=== PATIENT | female | born 1975 | race Caucasian/White ===

== ENCOUNTER 2018-07-01 11:03 | Emergency (ER) | payer OTHER ==
[~2018-07-01] VITALS: Ht 162.6 cm; Wt 99.8 kg
[~2018-07-01 11:03] MED LIST: ALBU90OI INH; Bactrim Ds Tab1 EACH PO; Cleocin HCl300 MG PO; GENVOYA TABLET1 EACH; HYDACE10B PO; HYDCHL25 PO; LOSA50 PO; PROCODE120 PO; SPACE CHAMBER1 EACH MC; [UNRECOGNIZED DRUG - OTHER]
[2018-07-01] MEDS ORDERED: Xylocaine 2% In20 ML PO (11:28)
== END 2018-07-01 11:31 | disposition home or self-care (01) ==
LOC: ER 11:03
DX: G89.18 Other acute postprocedural pain (principal); K08.89 Other specified disorders of teeth and supporting structures; Z87.891 Personal history of nicotine dependence
CPT/HCPCS: 99282

== ENCOUNTER 2018-12-10 21:08 | Emergency (ER) | payer OTHER ==
[~2018-12-10] VITALS: Ht 162.6 cm; Wt 86.2 kg
[~2018-12-10 21:08] MED LIST changes: +CHOL10002 PO; +DOCU100 PO; -GENVOYA TABLET1 EACH; +GENVOYA TABLET1 EACH PO; +IBUP800 PO; +LIDO5TO TOP; +ONDA4ODT PO; +POTA10T PO; +Percocet 5-3251 EACH PO; +Silvadene20 GM TOP; +Xylocaine 2% In20 ML PO
[2018-12-10 21:34] LABS: BASOPHILS ABSOLUTE AUTO 0.05 K/mm3 (0.00-0.23); BASOPHILS PERCENT AUTO 1 % (0-2); EOSINOPHILS ABSOLUTE AUTO 0.12 K/mm3 (0.00-0.68); EOSINOPHILS PERCENT AUTO 1 % (0-6); Hematocrit 40.3 % (33.0-51.0); Hemoglobin 13.3 g/dL (11.5-16.0); IMMATURE GRAN ABSOLUTE AUTO 0.04 K/mm3 (0.00-0.10); IMMATURE GRAN PERCENT AUTO 1 % (0-1); LYMPHOCYTES PERCENT AUTO 49 % (21-46); MONOCYTES ABSOLUTE AUTO 0.52 K/mm3 (0.16-1.47); MONOCYTES PERCENT AUTO 6 % (4-13); Mean Corpuscular HGB 31.9 pg (26.0-34.0); Mean Corpuscular Volume 97 fL (80-100); Mean Platelet Volume 9.5 fL (9.1-12.4); NEUTROPHILS ABSOLUTE AUTO 3.53 K/mm3 (1.96-9.15); NEUTROPHILS PERCENT AUTO 42 % (41-73); Platelet Count 334 K/mm3 (150-400); RDW Coefficient Variation 13.8 % (11.7-14.2); RDW Standard Deviation 48.9 fL (35.1-46.3); Red Blood Cell Count 4.17 M/mm3 (3.80-5.20); White Blood Cell Count 8.36 K/mm3 (4.00-11.30)
[2018-12-10 21:52] LABS: Alanine Aminotransfer (ALT/SGP 44 U/L (12-78); Albumin, Blood 3.7 g/dL (3.4-5.0); Albumin/Globulin Ratio 0.8 (0.8-1.8); Alk Phos 91 U/L (50-136); Anion Gap 12 mmol/L (6-16); Aspartate Aminotrans (AST/SGOT 23 U/L (12-37); Bilirubin, Total 0.2 mg/dL (0.1-1.0); Blood Urea Nitrogen 22 mg/dL (8-24); Bun/Creatinine Ratio 24.1 (12.0-20.0); CO2, Blood 22 mmol/L (21-32); Calcium, Blood 8.9 mg/dL (8.5-10.1); Chloride, Blood 103 mmol/L (98-108); Creatinine, Blood 0.91 mg/dL (0.40-1.00); Globulin, Blood 4.4 g/dL (2.2-4.0); Glomerular Filtration Rate >60 (60-); Glucose, Blood 118 mg/dL (70-99); Potassium, Blood 3.5 mmol/L (3.5-5.5); Sodium, Blood 137 mmol/L (136-145); Total Protein, Blood 8.1 g/dL (6.4-8.2)
[2018-12-10 23:00] LABS: Source, Urine Clean Catch
[2018-12-10 23:04] LABS: Bilirubin, Urine Neg (Neg); Blood, Urine 3+ (Neg); Glucose Qualitative, Urine Neg (Neg); Ketones, Urine 1+ (Neg); Leukocyte Esterase, Urine 3+ (Neg); Nitrite, Urine Neg (Neg); Protein, Urine 2+ (Neg); Urobilinogen, Urine NORM (Normal)
[2018-12-10 23:20] LABS: Appearance, Urine Hazy (Clear); Color, Urine Yellow (P-Yellow)
[2018-12-10 23:21] LABS: Bacteria Few /hpf; Squamous Epithelial Cells Few /hpf (Few); White Blood Cells, Urine TNTC /hpf (0-5)
[2018-12-11] MEDS ORDERED: CEPH500 PO (02:03)
== END 2018-12-11 02:35 | disposition home or self-care (01) ==
LOC: ER 21:08
PROVIDERS: Emergency Medicine
DX: N39.0 Urinary tract infection, site not specified (principal); R19.7 Diarrhea, unspecified; Z79.899 Other long term (current) drug therapy; B20 Human immunodeficiency virus [HIV] disease; Z87.891 Personal history of nicotine dependence
CPT/HCPCS: 36415; 80053; 81001; 83605; 85025; 87077; 87086; 87186; 96365; 96375; 99283-25; J0696; J1885; J7030

== ENCOUNTER → 2019-02-12 | Outpatient (CLI) | payer OTHER ==
[~2019-02-12] MED LIST changes: +CEPH500 PO
== END | disposition home or self-care (01) ==
LOC: LAB 12:45 → LAB SHORT 12:45
DX: N89.8 Other specified noninflammatory disorders of vagina (principal)
CPT/HCPCS: 87070; 87205

== ENCOUNTER 2019-04-15 19:43 | Emergency (ER) | payer OTHER ==
[~2019-04-15] VITALS: Ht 162.6 cm; Wt 105.7 kg
[2019-04-15 20:28] LABS: Source, Urine Clean Catch
[2019-04-15 20:30] LABS: Blood, Urine 2+ (Neg); Glucose Qualitative, Urine Neg (Neg); Ketones, Urine Neg (Neg); Leukocyte Esterase, Urine 1+ (Neg); Nitrite, Urine Pos (Neg); Protein, Urine 3+ (Neg); Specific Gravity, Urine 1.015 (1.003-1.022); Urobilinogen, Urine 2+ (Normal)
[2019-04-15 20:36] LABS: Appearance, Urine Hazy (Clear); Bilirubin, Urine 2+ (Neg); Color, Urine Orange (P-Yellow)
[2019-04-15 20:37] LABS: Bacteria Few /hpf; Squamous Epithelial Cells Rare /hpf (Few); White Blood Cells, Urine TNTC /hpf (0-5)
[2019-04-15] MEDS ORDERED: POTCHL10ER PO (20:38)
[2019-04-15] MEDS ORDERED: VITAMIN D35000 UNIT PO (20:39)
[2019-04-15] MEDS ORDERED: OMEPRAZOLE (20:41)
[2019-04-15] MEDS ORDERED: Pyridium200 MG PO (20:41)
[2019-04-15 20:55] LABS: BASOPHILS ABSOLUTE AUTO 0.05 K/mm3 (0.00-0.23); BASOPHILS PERCENT AUTO 1 % (0-2); EOSINOPHILS ABSOLUTE AUTO 0.07 K/mm3 (0.00-0.68); EOSINOPHILS PERCENT AUTO 1 % (0-6); Hematocrit 40.6 % (33.0-51.0); Hemoglobin 13.4 g/dL (11.5-16.0); IMMATURE GRAN ABSOLUTE AUTO 0.02 K/mm3 (0.00-0.10); IMMATURE GRAN PERCENT AUTO 0 % (0-1); LYMPHOCYTES ABSOLUTE AUTO 3.02 K/mm3 (0.84-5.20); LYMPHOCYTES PERCENT AUTO 35 % (21-46); MONOCYTES ABSOLUTE AUTO 0.51 K/mm3 (0.16-1.47); MONOCYTES PERCENT AUTO 6 % (4-13); Mean Corpuscular HGB 31.3 pg (26.0-34.0); Mean Corpuscular Volume 95 fL (80-100); NEUTROPHILS ABSOLUTE AUTO 4.94 K/mm3 (1.96-9.15); NEUTROPHILS PERCENT AUTO 57 % (41-73); NRBC ABSOLUTE 0.02 K/mm3 (0.00-0.02); NRBC Auto 0.2 /100 WBC (0.0-0.2); Platelet Count 348 K/mm3 (150-400); RDW Coefficient Variation 14.5 % (11.7-14.2); Red Blood Cell Count 4.28 M/mm3 (3.80-5.20); White Blood Cell Count 8.61 K/mm3 (4.00-11.30)
[2019-04-15 21:13] LABS: Alanine Aminotransfer (ALT/SGP 72 U/L (12-78); Albumin, Blood 3.9 g/dL (3.4-5.0); Albumin/Globulin Ratio 0.9 (0.8-1.8); Alk Phos 93 U/L (50-136); Anion Gap 15 mmol/L (6-16); Aspartate Aminotrans (AST/SGOT 35 U/L (12-37); Bilirubin, Total 0.2 mg/dL (0.1-1.0); Blood Urea Nitrogen 17 mg/dL (8-24); Bun/Creatinine Ratio 17.7 (12.0-20.0); CO2, Blood 24 mmol/L (21-32); Calcium, Blood 9.3 mg/dL (8.5-10.1); Chloride, Blood 102 mmol/L (98-108); Creatinine, Blood 0.96 mg/dL (0.40-1.00); Globulin, Blood 4.4 g/dL (2.2-4.0); Glomerular Filtration Rate >60 (60-); Glucose, Blood 118 mg/dL (70-99); Magnesium, Blood 1.9 mg/dL (1.6-2.4); Potassium, Blood 3.5 mmol/L (3.5-5.5); Sodium, Blood 141 mmol/L (136-145); Total Protein, Blood 8.3 g/dL (6.4-8.2)
== END 2019-04-16 00:59 | disposition home or self-care (01) ==
LOC: ER 19:43
PROVIDERS: Emergency Medicine
DX: N39.0 Urinary tract infection, site not specified (principal); E86.0 Dehydration; Z79.899 Other long term (current) drug therapy; Z87.891 Personal history of nicotine dependence; Z21 Asymptomatic human immunodeficiency virus [HIV] infection status
CPT/HCPCS: 36415; 80053; 81001; 83605; 83690; 83735; 84145; 85025; 87086; 96361; 96365; 99283-25; J0696; J7030

== ENCOUNTER → 2019-09-24 | Outpatient (CLI) | payer OTHER ==
[~2019-09-24] MED LIST changes: +BIKTARVY 50-201 EACH PO; +Cyclobenzaprine5 MG PO; +HYDR1TAB94 PO; +OMEPRAZOLE; +POTCHL10ER PO; +PRED20 PO; +Pyridium200 MG PO; +VITAMIN D35000 UNIT PO
[2019-09-25 13:07] LABS: HPV 16 Positive (Negative); HPV 18 Negative (Negative); HPV OTHER HR TYPES Negative (Negative)
== END | disposition home or self-care (01) ==
LOC: LAB 12:20 → LAB SHORT 12:20
PROVIDERS: Nurse Practitioner Women's Health
DX: Z12.72 Encounter for screening for malignant neoplasm of vagina (principal); Z91.89 Other specified personal risk factors, not elsewhere classified
CPT/HCPCS: 87624; 87625; G0123

== ENCOUNTER → 2019-10-09 | Outpatient (CLI) | payer OTHER | END | disposition home or self-care (01) | LOC: LAB SHORT 12:32 → PLD 12:32 | DX: D07.2 Carcinoma in situ of vagina (principal) | CPT/HCPCS: 88305 ==

== ENCOUNTER 2019-10-25 23:23 | Emergency (ER) | payer OTHER ==
[~2019-10-25] VITALS: Ht 162.6 cm; Wt 108.9 kg
[~2019-10-25 23:23] MED LIST changes: -BIKTARVY 50-201 EACH PO; -Cyclobenzaprine5 MG PO; -HYDR1TAB94 PO; -PRED20 PO
[2019-10-25] MEDS ORDERED: BIKTARVY 50-201 EACH PO (23:51)
[2019-10-26] MEDS ORDERED: Cyclobenzaprine5 MG PO (00:37)
[2019-10-26] MEDS ORDERED: HYDR1TAB94 PO (00:37)
[2019-10-26] MEDS ORDERED: PRED20 PO (00:37)
== END 2019-10-26 00:53 | disposition home or self-care (01) ==
LOC: ER 23:23
DX: M54.42 Lumbago with sciatica, left side (principal); G89.29 Other chronic pain; Z98.1 Arthrodesis status; Z87.891 Personal history of nicotine dependence; Z79.899 Other long term (current) drug therapy
CPT/HCPCS: 96372; 99283; J1885; J7512

== ENCOUNTER 2020-11-23 13:15 | Inpatient (IN) | payer OTHER ==
[~2020-11-23] VITALS: Ht 165.1 cm; Wt 116.3 kg
[~2020-11-23 13:15] MED LIST changes: +BIKTARVY 50-201 EAC1 PO; +Cyclobenzaprine5 MG PO; +HYDR1TAB94 PO; +LOSA25 PO; -LOSA50 PO; -POTCHL10ER PO; +PRED20 PO; +THERA-D2000 UNIT PO; -VITAMIN D35000 UNIT PO
[2020-11-23 14:14] LABS: BASOPHILS ABSOLUTE AUTO 0.08 K/mm3 (0.00-0.23); BASOPHILS PERCENT AUTO 1 % (0-2); EOSINOPHILS ABSOLUTE AUTO 0.01 K/mm3 (0.00-0.68); EOSINOPHILS PERCENT AUTO 0 % (0-6); Hematocrit 37.6 % (33.0-51.0); IMMATURE GRAN ABSOLUTE AUTO 0.15 K/mm3 (0.00-0.10); IMMATURE GRAN PERCENT AUTO 1 % (0-1); LYMPHOCYTES ABSOLUTE AUTO 0.86 K/mm3 (0.84-5.20); LYMPHOCYTES PERCENT AUTO 5 % (21-46); MONOCYTES ABSOLUTE AUTO 1.12 K/mm3 (0.16-1.47); MONOCYTES PERCENT AUTO 7 % (4-13); Mean Corpuscular HGB 30.7 pg (26.0-34.0); Mean Corpuscular HGB Conc 31.9 g/dL (31.5-36.5); Mean Corpuscular Volume 96 fL (80-100); Mean Platelet Volume 10.3 fL (9.1-12.4); NEUTROPHILS ABSOLUTE AUTO 14.21 K/mm3 (1.96-9.15); NEUTROPHILS PERCENT AUTO 87 % (41-73); NRBC ABSOLUTE 0.14 K/mm3 (0.00-0.02); NRBC Auto 0.9 /100 WBC (0.0-0.2); Platelet Count 344 K/mm3 (150-400); RDW Coefficient Variation 15.4 % (11.7-14.2); RDW Standard Deviation 54.7 fL (35.1-46.3); Red Blood Cell Count 3.91 M/mm3 (3.80-5.20); White Blood Cell Count 16.43 K/mm3 (4.00-11.30)
[2020-11-23 14:41] LABS: Source, Urine Catheter
[2020-11-23 14:46] LABS: Troponin I 0.137 ng/mL (0.000-0.040)
[2020-11-23 14:50] LABS: Appearance, Urine Cloudy (Clear); Blood, Urine 4+ (Neg); Color, Urine Amber (P-Yellow); Glucose Qualitative, Urine Neg (Neg); Ketones, Urine 2+ (Neg); Leukocyte Esterase, Urine 3+ (Neg); Nitrite, Urine Pos (Neg); Protein, Urine 4+ (Neg); Urobilinogen, Urine 1+ (Normal)
[2020-11-23 14:52] LABS: Alanine Aminotransfer (ALT/SGP 124 U/L (12-78); Albumin, Blood 3.1 g/dL (3.4-5.0); Albumin/Globulin Ratio 0.6 (0.8-1.8); Alk Phos 96 U/L (50-136); Anion Gap 19 mmol/L (6-16); Aspartate Aminotrans (AST/SGOT 251 U/L (12-37); Bilirubin, Total 0.9 mg/dL (0.1-1.0); Blood Urea Nitrogen 57 mg/dL (8-24); Bun/Creatinine Ratio 6.4 (12.0-20.0); CO2, Blood 19 mmol/L (21-32); Calcium, Blood 7.6 mg/dL (8.5-10.1); Chloride, Blood 88 mmol/L (98-108); Globulin, Blood 5.1 g/dL (2.2-4.0); Glomerular Filtration Rate 5 (60-); Glucose, Blood 175 mg/dL (70-99); Sodium, Blood 126 mmol/L (136-145); Total Protein, Blood 8.2 g/dL (6.4-8.2)
[2020-11-23 14:56] LABS: Bilirubin, Urine 1+ (Neg)
[2020-11-23 14:59] LABS: Bacteria Many /hpf; Red Blood Cells, Urine TNTC /hpf (0-2); Squamous Epithelial Cells Few /hpf (Few); Transitional Epithelial Cells Few /hpf (0-Rare); White Blood Cells, Urine TNTC /hpf (0-5)
[2020-11-23 15:15] LABS: U Amphetamine Screen Not Detected; U Barbituate Screen Not Detected; U Benzodiazapine Screen Not Detected; U Buprenorphine Screen Not Detected; U Cannabinoids Screen DETECTED; U Cocaine Screen Not Detected; U Methadone Screen Not Detected; U Methamphetamine Screen Not Detected; U Opiates Screen DETECTED; U Oxycodone Screen Not Detected; U Phencyclidine Screen Not Detected; U Propoxyphene Screen Not Detected
[2020-11-23 16:31] LABS: Base Excess Venous -10.7 mmol/L; Bicarbonate Venous 15.7 mmol/L (24.0-30.0); PCO2 Venous 62.3 mmHg (38-42); PO2 Venous 102 mmHg (38-42); pH Blood Venous 7.09 (7.34-7.37)
[2020-11-23 16:58] LABS: International Normalized Ratio 1.09; Prothrombin Time Results 11.6 Sec (9.7-11.5)
[2020-11-23 17:00] LABS: Uric Acid, Blood 17.8 mg/dL (2.6-6.0)
[2020-11-23 17:05] LABS: Creatine Kinase MB 70.5 ng/mL (0.0-3.6)
[2020-11-23] MEDS ORDERED: TRAM50 PO (17:50)
[2020-11-23 17:51] LABS: PCO2 Arterial 41.2 mmHg (35-45); PO2 Arterial 108 mmHg (80-100); pH Blood Arterial 7.24 (7.35-7.45)
[2020-11-23 17:54] LABS: Automated CSF WBC Count 0.002 K/mm3 (0-5); WBC Count, CSF 2 /mm3 (0-5)
[2020-11-23] MEDS ORDERED: OMEP20ER PO (17:54)
[2020-11-23 17:56] LABS: Glucose, CSF 111 mg/dL (40-70)
[2020-11-23 18:09] LABS: RBC Count, CSF 3 /mm3 (0-0)
[2020-11-23 18:10] LABS: Appearance, CSF Clear (Clear); Color, CSF No Color (No Color)
[2020-11-23 18:11] LABS: Automated CSF WBC Count 0.002 K/mm3 (0-5); WBC Count, CSF 2 /mm3 (0-5)
[2020-11-23 18:20] LABS: Appearance, CSF Clear (Clear); Color, CSF No Color (No Color)
[2020-11-23 18:21] LABS: RBC Count, CSF 1 /mm3 (0-0)
[2020-11-23 19:01] LABS: Cryptococcus Neoformans/Gattii Not Detected (NOT DETECT); Enterovirus Not Detected (NOT DETECT); Escherichia Coli K1 Not Detected (NOT DETECT); Haemophilus Influenza Not Detected (NOT DETECT); Herpes Simplex Virus 1 Not Detected (NOT DETECT); Herpes Simplex Virus 2 Not Detected (NOT DETECT); Human Herpesvirus 6 Not Detected (NOT DETECT); Human Parechovirus Not Detected (NOT DETECT); Listeria Monocytogenes Not Detected (NOT DETECT); Neisseria Meningitidis Not Detected (NOT DETECT); Streptococcus Agalactiae Not Detected (NOT DETECT); Streptococcus Pneumoniae Not Detected (NOT DETECT); Varicella Zoster Virus Not Detected (NOT DETECT)
[2020-11-23 20:57] LABS: Albumin, Blood 2.7 g/dL (3.4-5.0); Anion Gap 15 mmol/L (6-16); Blood Urea Nitrogen 61 mg/dL (8-24); CO2, Blood 22 mmol/L (21-32); Chloride, Blood 90 mmol/L (98-108); Glucose, Blood 156 mg/dL (70-99); Potassium, Blood 4.2 mmol/L (3.5-5.5); Sodium, Blood 127 mmol/L (136-145)
[2020-11-23 21:00] LABS: Bun/Creatinine Ratio 7.1 (12.0-20.0); Creatinine, Blood 8.54 mg/dL (0.40-1.00); Glomerular Filtration Rate 5 (60-)
--- NOTE | 2020-11-24 03:55 | NUR ---
ASSESSMENT/ TX NOTE PT ARRIVED TO ICU FROM ER, TX TO BED VIA TOTAL LIFT. PT INTUBATED AND SEDATED UPON ARRIVAL, NOT FOLLOWING COMMANDS, MINIMAL MOVEMENT OF EXTREMITIES. VENT SETTINGS UPON ARRIVAL-AC:16/450/5/30% c O2 SATS >90%. PROPOFOL TITRATED TO EFFECT, INITIALLY @ 10MCG/KG/MIN. SODIUM BICARB @ 100ML/HR. BILATERAL 22 GA IV'S, OPTOMETRIC COORDINATOR ESTABLISHED POWERGLIDE UPON ARRIVAL. SONIA WRIST RESTRAINTS PLACED TO PROTECT LINES AND ET TUBE PT BEGAN MOVING HANDS TOWARDS FACE AND LINES. TEMP JUAREZ CATH DRAINING YELLOW URINE. NSR/ST ON THE VEHICLE MODIFICATION TECHNICIAN. PT BECAME HYPOTENSIVE, DR. HOWELL NOTIFIED. FLUID BOLUS GIVEN AND ORDER PLACED FOR VERSED DRIP TO SUPPLEMEMT SEDATION. PROPOFOL TITRATED DOWN TO 10 MCG'S WITH VERSED INFUSING, PT CURRENTLY NORMOTENSIVE. WILL CONTINUE TO MONITOR.
[2020-11-24 03:58] LABS: BASOPHILS ABSOLUTE AUTO 0.03 K/mm3 (0.00-0.23); BASOPHILS PERCENT AUTO 0 % (0-2); EOSINOPHILS ABSOLUTE AUTO 0.05 K/mm3 (0.00-0.68); EOSINOPHILS PERCENT AUTO 1 % (0-6); Hematocrit 30.4 % (33.0-51.0); Hemoglobin 9.9 g/dL (11.5-16.0); IMMATURE GRAN ABSOLUTE AUTO 0.08 K/mm3 (0.00-0.10); IMMATURE GRAN PERCENT AUTO 1 % (0-1); LYMPHOCYTES ABSOLUTE AUTO 0.89 K/mm3 (0.84-5.20); LYMPHOCYTES PERCENT AUTO 11 % (21-46); MONOCYTES ABSOLUTE AUTO 0.59 K/mm3 (0.16-1.47); MONOCYTES PERCENT AUTO 7 % (4-13); Mean Corpuscular HGB 30.8 pg (26.0-34.0); Mean Corpuscular HGB Conc 32.6 g/dL (31.5-36.5); Mean Corpuscular Volume 95 fL (80-100); NEUTROPHILS ABSOLUTE AUTO 6.64 K/mm3 (1.96-9.15); NEUTROPHILS PERCENT AUTO 80 % (41-73); NRBC ABSOLUTE 0.07 K/mm3 (0.00-0.02); NRBC Auto 0.8 /100 WBC (0.0-0.2); Platelet Count 234 K/mm3 (150-400); RDW Coefficient Variation 15.4 % (11.7-14.2); RDW Standard Deviation 53.1 fL (35.1-46.3); Red Blood Cell Count 3.21 M/mm3 (3.80-5.20); White Blood Cell Count 8.28 K/mm3 (4.00-11.30)
[2020-11-24 04:25] LABS: Magnesium, Blood 1.8 mg/dL (1.6-2.4)
[2020-11-24 04:29] LABS: Alanine Aminotransfer (ALT/SGP 86 U/L (12-78); Albumin, Blood 2.3 g/dL (3.4-5.0); Albumin/Globulin Ratio 0.5 (0.8-1.8); Alk Phos 78 U/L (50-136); Anion Gap 17 mmol/L (6-16); Aspartate Aminotrans (AST/SGOT 141 U/L (12-37); Bilirubin, Total 0.6 mg/dL (0.1-1.0); Blood Urea Nitrogen 63 mg/dL (8-24); Bun/Creatinine Ratio 7.6 (12.0-20.0); CO2, Blood 20 mmol/L (21-32); Calcium, Blood 6.4 mg/dL (8.5-10.1); Chloride, Blood 93 mmol/L (98-108); Creatinine, Blood 8.27 mg/dL (0.40-1.00); Globulin, Blood 4.2 g/dL (2.2-4.0); Glomerular Filtration Rate 6 (60-); Glucose, Blood 144 mg/dL (70-99); Phosphorus, Blood 7.5 mg/dL (2.5-4.9); Potassium, Blood 3.9 mmol/L (3.5-5.5); Sodium, Blood 130 mmol/L (136-145); Total Protein, Blood 6.5 g/dL (6.4-8.2); Vancomycin, Random 28.1 ug/mL
--- NOTE | 2020-11-24 06:41 | NUR ---
SHIFT ASSESSMENT PT REMAINS INTUBATED AND SEDATED. VENT SETTINGS REMAIN THE SAME. PROPOFOL TITRATED DOWN TO MAINTAIN ADEQUATE BP. PT BECAME FULLY ALERT WITH PROPOFOL ON SB AND VERSED AT 2MG/HR, BP c MAP >65 AT THAT TIME. PT WAS ABLE TO FOLLOW ALL COMMANDS, BUT BEGAN FIGHTING THE VENTILATOR. PROPOFOL GTT STARTED BACK @ 10MCG AND VERSED @ 2MG/HR WHICH RESULTED IN SOFT BP'S. 500CC NS BOLUS ORDERED AND ADMINISTERED. WILL CONTINUE TO MONITOR CLOSELY AND TITRATE TO EFFECT.
--- NOTE | 2020-11-24 07:30 | NUR ---
ASSUMED CARE BEDSIDE REPORT RECIEVED. PT IS INTUBATED AND LIGHTLY SEDATED. VENT SETTINGS AC 16, TV 450, PEEP 5, FIO2 30%. VITAL SIGNS STABLE. SBP 80-90'S AT THIS TIME. PT OPENS EYES TO VERBAL AND NOXIOUS STIMULI. PT SHAKES HEAD NO AND SQUEEZES LEFT HAND UPON COMMAND. SBW RESTRAINTS IN PLACE. OGT IN PLACE TO LIS WITH BILE OUTPUT NOTED. JUAREZ TEMP PROBE IN PLACE WITH MINIMAL AMOUNT OF YELLOW URINE OUTPUT NOTED. PROPOFOL ON STANDBY, VERSED GTT INFUSING AT 4 MG/HR. NS INFUSING AT 5O ML/HR AND BICARB AT 100 ML/HR. DR MCKEON IN TO SEE PT THIS AM. NO NEW ORDERS. WILL CONTINUE TO MONITOR.
--- NOTE | 2020-11-24 10:56 | NUR ---
Echocardiogram completed.
--- NOTE | 2020-11-24 16:35 | NUR ---
EXTUBATION DR KIM AT BEDSIDE TO PUT PT ON PRESSURE SUPPORT 5/5, FIO2 35% [id number]. PROPOFOL ON STANDBY. PT DID WELL WITH PS TRIAL. RT AT BEDSIDE, PT EXTUBATED TO 4L O2 NC AT 1615. SBW RESTRAINTS REMOVED. WILL CONTINUE TO MONITOR.
--- NOTE | 2020-11-24 17:43 | NUR ---
SHIFT SUMMARY NO ACUTE CHANGES SINCE EXTUBATION. PT REMAINS AWAKE, ALERT, AND ORIENTED TO SELF AND FOLLOWING SIMPLE DIRECTIONS. PT WITH EPISODES OF A BLANK GAZE WHEN TALKING WITH PT. PT OTHERWISE TRACKS WHEN IN ROOM AND SPEAKS SOME WORDS. PT RESTLESS, MOVING ALL EXTREMITIES WELL. VITAL SIGNS STABLE, PT ON 4L O2 NC. PICC TO OTTO IS C/D/I. BICARB INFUSING AT 100 ML/HR AND NS AT 50 ML/HR. JUAREZ TEMP PROBE REMAINS IN PLACE WITH DARK YELLOW URINE OUTPUT NOTED. PT FRIEND AT BEDSIDE AT THIS TIME. WILL CONTINUE TO MONITOR AND REPORT OFF TO ONCOMING RN.
[2020-11-24 17:59] LABS: Albumin, Blood 2.4 g/dL (3.4-5.0); Anion Gap 13 mmol/L (6-16); Blood Urea Nitrogen 63 mg/dL (8-24); Bun/Creatinine Ratio 8.5 (12.0-20.0); CO2, Blood 23 mmol/L (21-32); Calcium, Blood 6.6 mg/dL (8.5-10.1); Chloride, Blood 96 mmol/L (98-108); Glomerular Filtration Rate 6 (60-); Glucose, Blood 125 mg/dL (70-99); Phosphorus, Blood 5.9 mg/dL (2.5-4.9); Potassium, Blood 3.7 mmol/L (3.5-5.5); Sodium, Blood 132 mmol/L (136-145)
--- NOTE | 2020-11-24 19:48 | NUR ---
SHIFT ASSESSMENT ASSUMED CARE OF PT @ 1900, REPORT FROM FRANSISCO MARRUFO. PT SITTING UPRIGHT IN BED, ALERT BUT CONFUSED. TALKING TO HERSELF IN THE ROOM, PULLING AT LINES AND CORDS. CONTINUES TO FLAIL HER ARMS IN THE AIR, PULLING OFF BP CUFF AND OXYGEN. WHEN ASKED IF SHE KNOWS WHERE SHE IS, PT GIVES A BLANK STARE. WILL NOT STATE HER NAME, TELLS THIS NURE AND STUDENT TO GO AWAY. ATTEMPTED TO CALM PT. PRECEDEX GTT TO BE INITIATED. VSS. JUAREZ CATH PATENT, DRAINING TO GRAVITY. PICC LINE TO OTTO c 100 SODIUM BICARB INFUSING. WILL CONTINUE TO MONITOR.
--- NOTE | 2020-11-24 20:07 | NUR ---
UPDATE PT ROLLING IN BED, ATTEMPTING TO GET OUT OF BED. CONTINUES TO PULL AT LINES AND CORDS. WILL NOT LEAVE OXYGEN IN PLACE. O2 SATS >90% ON RA. SWATTING AT STAFF. PT REPEATING WHAT STAFF SAYS. PT ALSO REPEATING "WHERE ARE WE GOING, I'M READY TO GO. HURRY UP, HURRY UP". PRECDEX GTT STARTED @ 0.4. WILL CONTINUE TO MONITOR.
--- NOTE | 2020-11-24 20:58 | NUR ---
UPDATE PT BEGAN PULLING VIOLENTLY AT PICC LINE AND SWATTING AT THIS NURSE. PT HAD BOTH HANDS PULLING AT HER PICC LINE. THIS NURSE CONTROLLED BOTH WRISTS, WAITED FOR ASSISTANCE FROM STAFF. PT PLACED IN RESTRAINTS TO PROTECT LINES. ORDER RECEIVED FROM DR KIM FOR ZYPREXA AND PRECEDEX TO BE TITRATED TO 1.4 PENDING STABLE BP. WILL CONTINUE TO MONITOR.
--- NOTE | 2020-11-25 01:17 | NUR ---
UPDATE PT TOLERATING MEDICATION REGIMEN AT THIS TIME WELL BIPAP. BIPAP-16/8 @ 25% c O2 SATS >95%. PRECEDEX @ 0.9MCG/KG/HR, NOREPINEPHRINE @ 2MCG/MIN c MAP >65. PT REMAINS IN BL WRIST RESTRAINTS FOR PROTECTION OF LINES AND CORDS. WILL CONTINUE TO MONITOR.
[2020-11-25 03:40] LABS: BASOPHILS ABSOLUTE AUTO 0.02 K/mm3 (0.00-0.23); BASOPHILS PERCENT AUTO 0 % (0-2); EOSINOPHILS ABSOLUTE AUTO 0.07 K/mm3 (0.00-0.68); EOSINOPHILS PERCENT AUTO 1 % (0-6); Hematocrit 27.8 % (33.0-51.0); Hemoglobin 9.2 g/dL (11.5-16.0); IMMATURE GRAN ABSOLUTE AUTO 0.05 K/mm3 (0.00-0.10); IMMATURE GRAN PERCENT AUTO 1 % (0-1); LYMPHOCYTES ABSOLUTE AUTO 0.92 K/mm3 (0.84-5.20); LYMPHOCYTES PERCENT AUTO 14 % (21-46); MONOCYTES ABSOLUTE AUTO 0.82 K/mm3 (0.16-1.47); MONOCYTES PERCENT AUTO 13 % (4-13); Mean Corpuscular HGB 31.3 pg (26.0-34.0); Mean Corpuscular HGB Conc 33.1 g/dL (31.5-36.5); Mean Corpuscular Volume 95 fL (80-100); Mean Platelet Volume 10.1 fL (9.1-12.4); NEUTROPHILS ABSOLUTE AUTO 4.65 K/mm3 (1.96-9.15); NEUTROPHILS PERCENT AUTO 71 % (41-73); NRBC ABSOLUTE 0.04 K/mm3 (0.00-0.02); NRBC Auto 0.6 /100 WBC (0.0-0.2); Platelet Count 224 K/mm3 (150-400); RDW Coefficient Variation 15.6 % (11.7-14.2); RDW Standard Deviation 53.3 fL (35.1-46.3); Red Blood Cell Count 2.94 M/mm3 (3.80-5.20); White Blood Cell Count 6.53 K/mm3 (4.00-11.30)
[2020-11-25 03:54] LABS: Albumin, Blood 2.2 g/dL (3.4-5.0); Anion Gap 12 mmol/L (6-16); Blood Urea Nitrogen 64 mg/dL (8-24); Bun/Creatinine Ratio 11.1 (12.0-20.0); CO2, Blood 25 mmol/L (21-32); Calcium, Blood 6.2 mg/dL (8.5-10.1); Chloride, Blood 99 mmol/L (98-108); Creatinine, Blood 5.79 mg/dL (0.40-1.00); Glomerular Filtration Rate 8 (60-); Glucose, Blood 120 mg/dL (70-99); Magnesium, Blood 1.7 mg/dL (1.6-2.4); Phosphorus, Blood 5.5 mg/dL (2.5-4.9); Potassium, Blood 3.5 mmol/L (3.5-5.5); Sodium, Blood 136 mmol/L (136-145)
--- NOTE | 2020-11-25 06:29 | NUR ---
SHIFT SUMMARY PT REMAINS ON SEDATION c PRECEDEX GTT @ 1.4MCG. BIPAP SETTINGS REMAIN THE SAME c O2 SATS >90%. PT CONTINUES TO INTERMITTENTLY PULL AT RESTRAINTS AND MUMBLES NONSENSICAL WORDS. MEDICATED WITH PRN ZYPREXA AND FENTANYL. NOREPINEPHRINE ON SB. MINIMAL RESPONSE WITH ZYPREXA. FENTANYL CALMS PT FOR A SHORT PERIOD OF TIME. JUAREZ CATH PATENT, DRAINING YELLOW URINE. NO OTHER CHANGES, WILL CONTINUE TO MONITOR.
--- NOTE | 2020-11-25 07:30 | NUR ---
ASSUMED CARE RECEIVED REPORT FROM YARON RODRIGEZ. PT IN BED ON BIPAP 16/8, 25%, SPO2 > 90%, MAP > 65, SINUS RHYTHM. PT SLEEPING, SEDATED ON PRECEDEX AT 1.4 MCG/KG/HR. BED LOW AND LOCKED.
--- NOTE | 2020-11-25 11:00 | NUR ---
UPDATE/NEURO/BEHAVIOR WHEN AWAKE, PT CAN OPEN EYES SPONTANEOUSLY, AND LOOK TOWARDS SOUND/VERBAL STIMULI AND RESPOND, BUT SHE HAS NOT BEEN ABLE TO LOOK AT SOMEONE DIRECTLY AND TRACK. IF SHE DOES LOOK AT SOMEONE, AND THEY MOVE SLIGHTLY SHE CONTINUES TO LOOK 'RIGHT PAST THEM'. EVEN WHEN INSTRUCTED TO LOOK AT SOMETHING - SHE CANNOT DO IT, JUST WILL LOOK IN THE GENERAL DIRECTION. HER PUPILS ARE UNEQUAL, LEFT IS DILATED AT 6 MM, AND HER RIGHT IS CONSTRICTED AT 2-3; HER RIGHT ALSO DOESN'T APPEAR TO BE IN THE MIDDLE OF HER EYE COMPLETELY, SLIGHTLY OFF CENTER (DIAGONALLY DOWN LEFT, OR MEDIAL/INFERIOR QUDRANT). BOTH PUPILS ARE ROUND. THE RIGHT PUPIL IS BRISKLY REACTIVE TO LIGHT, AND LEFT IS SLUGGISH. SHE DOES NOT FOLLOW A VISUAL STIMULUS (MOVING FINGER SIDE TO SIDE, UP AND DOWN). POSITIVE CORNEAL REFLEX. SHE WILL REACH OUT FOR YOU IN YOUR GENERAL DIRECTION BUT DOESN'T KNOW WHERE YOU ARE EXACTLY. HOWEVER, WHEN ASKED HOW MANY FINGERS THIS RN WAS HOLDING UP (FOUR), SHE DID RESPOND WITH FOUR AFTER A MINUTE OF THINKING. BRIEF PERIODS OF TIME WHEN THE PT IS SLEEPING/SEDATED - PT WILL BE RIDGID/TONIC/EXTENDED. PLANTAR FLEXION OF THE FEET. VERY STRONG, FIXED COOK VACUUM KETTLE (EQUAL BILATERALLY). WHEN AWAKE PT WILL FOLLOW SOME COMMANDS AND WILL RESPOND SOMEWHAT APPROPRIATELY ("WHERE ARE YOU?" -- "WHY DID YOU ASK ME WHERE I AM, YOU KNOW WHERE I AM?"), BUT IS ONLY TRULEY ORIENTED TO SELF, AND FATHER+FRIEND (TAHIR). PT IS DEFENSIVE WHEN ASKED ABOUT 'WHERE SHE IS', 'WHAT YEAR IT IS', AND THE OTHER ORIENTATION QUESTIONS, BUT FINALLY AFTER A WHILE OF TRYING TO GET HER TO ANSWER A QUESTION SHE FINALLY ANSWERED "WHAT CITY ARE YOU IN RIGHT NOW?" WITH, "[place]" (SPELLING?), HER FRIEND TAHIR STATES THAT [place] A [place] SHE USED TO LIVE IN A LITTLE GIRL IN [facility]. SHE DOESN'T REMEMBER BEING TOLD MULTIPLE TIEMS SHES IN A HOSPITAL IN [place], [place]. DENIES PAIN, BUT WILL OCCASSIONALY SAY "HELP ME HELP ME HELP ME..." VERY QUICKLY AND WILL SLURR HER SPEECH. WHEN ASKED WHAT SHE NEEDS HELP FOR/FROM, AND SHE CANNOT RESPOND MEANINGFULLY. SPEAKING GIBBERISH AT TIMES. NO FACIAL DROOP, EQUAL COOK VACUUM KETTLE, AND DOESN'T ALWAYS SLURR WORDS, SOMETIMES CAN ARTICULATE WELL. WILL CONTINUE TO MONITOR CLOSELY. BED LOW AND LOCKED. DR. VARGAS AWARE.
--- NOTE | 2020-11-25 12:00 | NUR ---
SANDIE/ALICIA PT HAS INTERMITTENT PERIODS OF BEING AWAKE, SOMEWHAT ALERT, VERY AGITATED, AND ANXIOUS - PULLING ON RESTRAINTS, MOVING AROUND IN BED RESTLESSLY, MOVING ALL EXTREMITIES ALONG WITH PERIODS OF BEING ASLEEP/SEDATED, SPEAKING QUICKLY AND ALMOST HAVING A SLURR TO HER WORDS. (NO FACIAL DROOP NOTICED). RR DURING THESE SLEEPY PERIODS DROPS TO 8-12/MIN. SHE HAD TAKEN A BREAK FROM THE BIPAP FOR ABOUT 45 MINUTES THIS MORNING - WHICH HAD HELPED WITH THE AGITATION LEVEL WHEN SHE WAS AWAKE, BUT WHEN SHE WAS SLEEPING SHE WAS BRADYPNEIC. WAS PLACED BACK ON BIPAP TILL ABOUT 1100, WHEN DR. VARGAS INSTRUCTED TO TAKE OFF THE BIPAP, AND JUST DO RA (2L NC PRN TO KEEP SPO2 > 90%) - HER SPO2 CAN BE MAINTAINED IN THE 90s% ON ROOM AIR. PT APPEARS TO HAVE ELA, THOUGH, AND WILL BE MONITORED CLOSELY WHEN SHE IS SLEEPING. ALICIA WANTS TO HOLD ZYPREXA BECAUSE OF THE RIGIDITY IN AND EXTENSION OF HER EXTREMITIES, IN CASE OF DEVELOPING EPS. ATIVAN ORDERED PRN FOR AGITATION, TO KEEP PT SAFE. PT IS NOT PULLING ON RESTRAINTS SHE IS NOW IN A VEST, AND NOT IN SWB. TAKING OFF THE SWB HAS HELPED REDUCE SOME OF THE AGITATION. WILL BE CLOSELY MONITORED FOR POTENTIAL NEED FOR WRIST RESTRAINTS. SEE PREVIOUS NOTE REGARDING MORE IN DEPTH NEURO/BEHAVIOR. BED LOW AND LOCKED. ALICIA AT BEDSIDE.
--- NOTE | 2020-11-25 13:47 | NUR ---
Review of tp with nursing assesment of wit pt and neuro changes. Will follow up with plan of care and prognoisis. Father will be in today.
--- NOTE | 2020-11-25 16:40 | NUR ---
UPDATE DR. VARGAS HAD INSTRUCTED NURSING STAFF TO ONLY GIVE ZYPREXA IF ABSOLUTLEY NECESSARY AND TO USE ATIVAN FOR ACUTE AGITATION IF NEEDED. AFTER RECEIVING 2MG ATIVAN AT 1213, THE PT DID CALM DOWN AND WAS ADEQUATELY SEDATED --> CPOT OF 0-1 (FROM 4+). AFTER ABOUT 1-2 HOURS, THE PT WOKE UP AGITATED. THIS TIME, HOWEVER, THE PT WAS SLURRING HER WORDS MORE FREQUENTLY, AND HAD AN EVEN LESS ATTENTION SPAN THAN BEFORE, AND WAS MORESO SPEAKING 'GIBBERISH' THE MAJORITY OF THE TIME WHEN SHE WAS AWAKE (THIS AFTERNOON). AFTER SLEEPING FOR ANOTHER PERIOD OF TIME SHE STARTED TO AMP UP, INCREASING LEVELS OF AGITATION/ANXIETY AROUND [id number], AND AFTER TALKIGN TO ALICIA, HE SUGGESTED TO GIVE 1MG OF ATIVAN (GIVEN AT 1600), AND IF THAT DID NOT HELP, TO TRY THE ZYPREXA IM. CURRENTLY PT HAS A CPOT OF 1-2, SLEEPING SOUNDLY, WITH STABLE VITALS. PRECEDEX REMAINS AT 1.4 MCG/KG/HR. BED LOW AND LOCKED. FATHER (MARYLOU) HAD CAME IN TO VISIT HIS DAUGHTER. HE WAS UPDATED BY DR. VARGAS AND MYSELF. HE GAVE US MORE INFORMATION, HIS DAUGHTER WAS EXHIBITING A LOT OF THE SAME BEHAVIORS EVEN BEFORE EVER COMING INTO THE HOSPITAL. MUMBLING AND SPEAKING GIBBERISH. LOOKING LIKE SHE CANNOT SEE THINGS, NOT TRACKING, NOT MAKING EYE CONTACT, BUT WAS ABLE TO GUESS HOW MANY FINGERS HER FATHER WAS HOLDING UP. WHICH, SHE WAS ABLE TO DO WITH ME (SEE PREVIOUS NOTE). TAHIR CALLED, AND WAS UPDATED BY THIS RN. WILL CONTINUE TO MONITOR.
[2020-11-25] MEDS ORDERED: Prednisone10 MG PO (18:33)
[2020-11-25] MEDS ORDERED: VITAMIN D325 MC3 PO (18:34)
[2020-11-25] MEDS ORDERED: IBUP800 PO (18:38)
[2020-11-25] MEDS ORDERED: AMOX CLAV PO (18:41)
[2020-11-25] MEDS ORDERED: CODEINE-GUAIFE120 M1 PO (18:43)
--- NOTE | 2020-11-25 18:48 | NUR ---
SUMMARY/LAST UPDATE NO MAJOR CHANGES SINCE LAST UPDATE. PT CURRENTLY CPOT 0-1, ADEQUATELY SEDATED ON PRECEDEX 1.4 MCG/KG/HR AND OCCASSIONAL PRN ATIVAN (1MG IV). ROOM AIR, SPO2 93%. SINUS RHYTHM, STABLE BP, MAP > 65. RR 19 (HAS BEEN LOW 6, MAINLY IN THE 8-14 RANGE, BUT ALSO WHEN MORE AWAKE 16-24 RANGE). BICARB INFUSING AT 50 ML/HR, AND NS INFUSING AT 50 ML/HR. FOELY BAG REMAINS PATENT AND DRAINING YELLOW URINE. ANTIFUNGAL POWDER APPLIED TO UNDER BREASTS, JONE AREA, AND UNDER PANNUS. SOME REDDNESS AND MOISTURE UNDER BREASTS. BED LOW AND LOCKED.
--- NOTE | 2020-11-25 21:57 | NUR ---
ASSUMED CARE AT 1900 PT LAYING IN BED AND AGITATED DURING ASSESSMENT WHERE PT WAS MOANING, HAVING INCOMPREHENSIBLE SPEECH, MOVING ALL EXTREMITIES AROUND IN BED, PUSHING PILLOWS OFF, PULLING AT LINES, AND REACHING FOR OBJECTS IN THE AIR. PT IS NOT REDIRECTABLE BUT DOES TURN HEAD TOWARDS VERBAL STIMULI. PT DOES NOT FOLLOW DIRECTIONS. PUPILS ARE UNEQUAL (LT LARGER THAN RT) AND SLUGGISH. PRN ATIVAN GIVEN AND HELPFUL, PT NOW CALMLY RESTING IN BED. O2 SAT >90% ON RA WITH RR 10-25. HR 80-90'S. SBP 135-165. MAX TEMP 99.8. JUAREZ PATENT AND DRAINING TO GRAVITY. PRECEDEX INFUSING AT 1.4MCG/KG/HR. SODIUM BICARB INFUSING AT 50ML/HR. SEE SHIFT ASSESSMENT FOR FULL ASSESSMENT.
[2020-11-25 23:10] LABS: ABSOLUTE CD 4 HELPER 264 /uL (359-1519); BASOS 0 % (Not Estab.); EOS 1 % (Not Estab.); EOS (ABSOLUTE) 0.1 x10E3/uL (0.0-0.4); HEMATOCRIT 28.3 % (34.0-46.6); HEMOGLOBIN 9.6 g/dL (11.1-15.9); IMMATURE GRANS (ABS) 0.1 x10E3/uL (0.0-0.1); IMMATURE GRANULOCYTES 1 % (Not Estab.); LYMPHS 12 % (Not Estab.); LYMPHS (ABSOLUTE) 1.1 x10E3/uL (0.7-3.1); MCH 31.2 pg (26.6-33.0); MCHC 33.9 g/dL (31.5-35.7); MCV 92 fL (79-97); MONOCYTES 9 % (Not Estab.); MONOCYTES(ABSOLUTE) 0.8 x10E3/uL (0.1-0.9); NEUTROPHILS 77 % (Not Estab.); NEUTROPHILS (ABSOLUTE) 7.1 x10E3/uL (1.4-7.0); NRBC 1 % (0 - 0); PLATELETS 266 x10E3/uL (150-450); RBC 3.08 x10E6/uL (3.77-5.28); RDW 14.8 % (11.7-15.4); WBC 9.1 x10E3/uL (3.4-10.8)
--- NOTE | 2020-11-26 00:16 | NUR ---
UPDATE PT IS LESS AGITATED AND TRYING TO ANSWER QUESTIONS WHEN RN ASKS BUT SPEECH IS STILL INCOMPREHENSIBLE. PT CAN BE REDIRECTED FROM PULLING AT LINES.
[2020-11-26 04:05] LABS: BASOPHILS ABSOLUTE AUTO 0.02 K/mm3 (0.00-0.23); BASOPHILS PERCENT AUTO 0 % (0-2); EOSINOPHILS ABSOLUTE AUTO 0.09 K/mm3 (0.00-0.68); EOSINOPHILS PERCENT AUTO 1 % (0-6); Hematocrit 30.2 % (33.0-51.0); Hemoglobin 9.7 g/dL (11.5-16.0); IMMATURE GRAN ABSOLUTE AUTO 0.06 K/mm3 (0.00-0.10); IMMATURE GRAN PERCENT AUTO 1 % (0-1); LYMPHOCYTES ABSOLUTE AUTO 0.92 K/mm3 (0.84-5.20); LYMPHOCYTES PERCENT AUTO 13 % (21-46); MONOCYTES ABSOLUTE AUTO 1.03 K/mm3 (0.16-1.47); MONOCYTES PERCENT AUTO 14 % (4-13); Mean Corpuscular HGB 30.8 pg (26.0-34.0); Mean Corpuscular HGB Conc 32.1 g/dL (31.5-36.5); Mean Corpuscular Volume 96 fL (80-100); NEUTROPHILS ABSOLUTE AUTO 5.19 K/mm3 (1.96-9.15); NEUTROPHILS PERCENT AUTO 71 % (41-73); NRBC ABSOLUTE 0.03 K/mm3 (0.00-0.02); NRBC Auto 0.4 /100 WBC (0.0-0.2); Platelet Count 256 K/mm3 (150-400); RDW Coefficient Variation 15.7 % (11.7-14.2); RDW Standard Deviation 54.8 fL (35.1-46.3); Red Blood Cell Count 3.15 M/mm3 (3.80-5.20); White Blood Cell Count 7.31 K/mm3 (4.00-11.30)
--- NOTE | 2020-11-26 04:08 | NUR ---
UPDATE PT MORE ALERT AND TALKING IN FULL SENTENCES THAT IS NONSENSICAL AND VERY FAST. PT ALSO MORE FRANTICALLY TRYING TO SIT UP IN BED AND GRAB AT THE AIR OR ANYTHING AROUND HER. PT DID HAVE HER LEGS OVER THE BED RAILS TOO. PT GRABBED THIS RN TO SIT UP NONTHREATENING AND WAS ABLE TO BE REDIRECTED. PT ABLE TO ANSWER MINIMAL QUESTIONS AND UNDERSTOOD WHAT WAS BEING ASKED.
[2020-11-26 04:45] LABS: Albumin, Blood 2.3 g/dL (3.4-5.0); Anion Gap 16 mmol/L (6-16); Blood Urea Nitrogen 49 mg/dL (8-24); Bun/Creatinine Ratio 23.3 (12.0-20.0); CO2, Blood 23 mmol/L (21-32); Calcium, Blood 7.1 mg/dL (8.5-10.1); Chloride, Blood 103 mmol/L (98-108); Glomerular Filtration Rate 27 (60-); Glucose, Blood 124 mg/dL (70-99); Magnesium, Blood 1.7 mg/dL (1.6-2.4); Phosphorus, Blood 3.4 mg/dL (2.5-4.9); Potassium, Blood 3.9 mmol/L (3.5-5.5); Sodium, Blood 142 mmol/L (136-145)
[2020-11-26 04:47] LABS: CPK Creatine Kinase 1766 U/L (26-193)
--- NOTE | 2020-11-26 06:16 | NUR ---
END OF SHIFT SUMMARY PT LAYING IN BED AND IS SLIGHTLY ALERT BUT CONFUSED. SEE PREVIOUS NOTES ABOUT CHANGES T/O THE NIGHT. PT NOW IS CALM AND SLEEPING. NO COMPLAINTS OF PAIN OR DISCOMFORT. MAX TEMP 100.2. SPO2 >90% ON RA. HR 70-100. SBP 130-170. JUAREZ IN PLACE AND DRAINING TO GRAVITY. PRECEDEX INFUSING AT 1.4MCG/KG/HR. SODIUM BICARB INFUSING AT 50ML/HR. NS INFUSING AT 50ML/HR. WILL REPORT TO AM RN WHEN AVAILABLE.
--- NOTE | 2020-11-26 07:13 | NUR ---
ASSUMED CARE RECEIVED REPORT FROM YARON OROZCO. PT IS AWAKE, EYES CLOSED, MOVING AROUND IN THE BED-RESTLESSLY, SPEAKING VERY QUICKLY AND SLURRING HER WORDS ( SHE WAS DOING T/O NIGHT PER NOC RN, AND YESTERDAY). SINUS RHYTHM, BP IS ELEVATED 153/86, 115. RR IS 24. TEMP 99.3F PER TEMP JUAREZ (WHICH IS PATENT AND DRAINING YELLOW URINE). PICC SITE IS WNL, INTACT - THOUGH THE EXPOSED LENGTH IS 3CM. BED IS LOW AND LOCKED. CURRENT GTTPs: PRECEDEX 1.4 MCG/KG/HR, NS 50 ML/HR, AND BICARB 50ML/HR.
--- NOTE | 2020-11-26 10:30 | NUR ---
UPDATE PT WOKE UP MORE MORNING CONTINUED ON, AND WAS ABLE TO OPEN HERE EYES SLIGHTLY MORE. SHE WAS A TAD MORE COHERENT, BUT STILL SLURRING HER WORDS, TALKING VERY QUICKLY. SHE MENTIONED SOMETHING ABOUT "THE KIDS ARE COMING (IN THE ROOM?) SPEAKING TO ME, AND MAKING FUN OF ME". WHEN ASKED, SHE IS NOT ABLE TO EXPLAIN. BUT SHE MENTIONED SOMETHING ALONG THE LINES OF HAVING DIFFICULTY SPEAKING. SHE CONTINUES TO DENY PAIN, AND WILL FOLLOW SOME DIRECTIONS (LIKE LOOK OVER HERE, OR SQUEEZE AND LET GO), BUT CONTINUES TO MOVE AROUND RESTLESSLY, TRYING TO ESCAPE THE BED. HER FRANCK VEST IN ON AND SECURED TO BED, BUT NOT ZIPPED IN THE BACK IT DOES NOT FIT. IT HAS HELPED KEEP HER FROM GETTING OUT OF BED. MONITORING HER CLOSELY. PT STARTED TO HAVE INCREASED AGITATION, MORE ACTIVELY TRYING TO GET OUT OF BED, AND AT FIRST 50 MCG OF FENTANYL WAS GIVEN, BUT HAD NO MAJOR EFFECT, SO 1MG OF ATIVAN WAS GIVEN WHICH HELPED A LOT. DUE TO HER POTENTIAL ELA, DR. VARGAS DECIDED TO PUT HER BACK ON THE BIPAP, WHICH WAS PLACED ON THE PT AROUND [id number]. PRESSURES ARE 16/8, WITH 25% FIO2. SPO2 LOW-MID 90s%, RR 14-18. CPOT OF 0 CURRENTLY, SHE IS TOLERATING BIPAP WELL CURRENTLY. WILL CONTINUE TO MONITOR.
--- NOTE | 2020-11-26 15:42 | NUR ---
UPDATE PT GIVEN A BREAK FROM BIPAP, IT IS INCREASING AGITATION AND PLACED ON 2L NC. SPO2 MAINTAINED > 90% - SHE IS AWAKE AND HER RR IS 16-24
[2020-11-26 16:11] LABS: HIV-1 RNA BY PCR <20 (.)
--- NOTE | 2020-11-26 18:44 | NUR ---
FINAL UPDATE OF SHIFT PT BACK ON BIPAP 05/06, 25% AT ~1730. SHES IS LETHARGIC, SLEEPING, RR < 14, SPO2 LOW 90s%. RESTRAINTS DISCONTINUED, PT HAS NOT BEEN REACHING FOR PICC LINE, BIPAP, OR JUAREZ - UNDER CLOSE OBSERVATION. HR NOW IN 58-LOW 60s RANGE. PRECEDEX TURNED DOWN TO 1.0 MCG/KG/HR AT 1800. NO OTHER MAJOR CHANGES.
--- NOTE | 2020-11-26 21:44 | NUR ---
ASSUMED CARE AT 1900 PT LAYING IN BED WITH BIPAP SETTINGS 16/8, FIO2 25%, PT TOLERATING THIS FAIRLY. PT IS ALERT AND TALKING VERY QUICKLY IN A NONSENSICAL WAY. PT WAS ABLE TO ANSWER DIRECT Y/N QUESTIONS BUT WILL GET STUCK ON ONE PHRASE OR SERIES OF NUMBER AND WILL REPEAT THEM OVER AND OVER VERY QUICKLY, THEN WILL ANSWER ANY QUESTION WITH SAID PHRASE OR NUMBERS. PT DID NOT KNOW WHERE SHE WAS OR THE DATE/TIME, BUT DID KNOW THAT SHE WAS IN [place]. HR 55-70. SBP 150-160. AFIBRILE. JUAREZ PATENT AND DRAINING TO GRAVITY. PRECEDEX INFUSING AT 1.2MCG/KG/HR. SODIUM BICARB INFUSING AT 50ML/HR. SEE SHIFT ASSESSMENT FOR FULL ASSESSMENT.
[2020-11-27 04:23] LABS: BASOPHILS ABSOLUTE AUTO 0.01 K/mm3 (0.00-0.23); BASOPHILS PERCENT AUTO 0 % (0-2); EOSINOPHILS PERCENT AUTO 0 % (0-6); Hematocrit 27.8 % (33.0-51.0); Hemoglobin 8.7 g/dL (11.5-16.0); IMMATURE GRAN ABSOLUTE AUTO 0.26 K/mm3 (0.00-0.10); IMMATURE GRAN PERCENT AUTO 4 % (0-1); LYMPHOCYTES ABSOLUTE AUTO 0.93 K/mm3 (0.84-5.20); LYMPHOCYTES PERCENT AUTO 16 % (21-46); MONOCYTES ABSOLUTE AUTO 0.43 K/mm3 (0.16-1.47); MONOCYTES PERCENT AUTO 7 % (4-13); Mean Corpuscular HGB 30.5 pg (26.0-34.0); Mean Corpuscular HGB Conc 31.3 g/dL (31.5-36.5); Mean Corpuscular Volume 98 fL (80-100); Mean Platelet Volume 10.1 fL (9.1-12.4); NEUTROPHILS PERCENT AUTO 72 % (41-73); NRBC ABSOLUTE 0.04 K/mm3 (0.00-0.02); NRBC Auto 0.7 /100 WBC (0.0-0.2); Platelet Count 233 K/mm3 (150-400); RDW Coefficient Variation 16.1 % (11.7-14.2); RDW Standard Deviation 58.1 fL (35.1-46.3); Red Blood Cell Count 2.85 M/mm3 (3.80-5.20); White Blood Cell Count 5.93 K/mm3 (4.00-11.30)
[2020-11-27 04:41] LABS: Magnesium, Blood 1.5 mg/dL (1.6-2.4)
[2020-11-27 04:42] LABS: Albumin, Blood 1.9 g/dL (3.4-5.0); Albumin/Globulin Ratio 0.5 (0.8-1.8); Bilirubin, Total 0.5 mg/dL (0.1-1.0); Bun/Creatinine Ratio 36.1 (12.0-20.0); Calcium, Blood 6.7 mg/dL (8.5-10.1); Creatinine, Blood 1.08 mg/dL (0.40-1.00); Phosphorus, Blood 3.1 mg/dL (2.5-4.9); Potassium, Blood 3.7 mmol/L (3.5-5.5); Total Protein, Blood 5.9 g/dL (6.4-8.2)
--- NOTE | 2020-11-27 06:21 | NUR ---
END OF SHIFT SUMMARY PT ALERT BUT TALKS IN A NONSENSICAL WAY, PT WAS TALKING TO HERSELF IN ROOM AT SOME POINTS. PRN ATIVAN GIVEN X4 T/O SHIFT DUE TO INCREASED AGITATION WHERE PT LEGS WERE HANGING OVER THE SIDE OF THE BED AND PT WAS NOT REDIRECTABLE. PRN HELFPUL. PT ABLE TO BE ON BIPAP FOR MOST OF THE NIGHT WITH SETTINGS 16/8, FIO2 25%. AFIBRILE. HR 50-60. SBP 160-170. JUAREZ CATH PATENT AND DRAINING TO GRAVITY. PRECEDEX INFUSING AT 1.4MCG/KG/HR. SODIUM BICARB INFUSING AT 50ML/HR. WILL REPORT TO AM RN WHEN AVAILABLE.
--- NOTE | 2020-11-27 08:49 | NUR ---
ASSUMED CARE RECEIVED REPORT FROM YARON OROZCO. PT IS LAYING DOWN IN BED, CONFUSED, IN AND OUT OF SLEEP. RIGHT WRIST IN A SOFT RESTRAINT. HYPERTENSIVE (SBP > 160). BRADYCARDIC, RATE 50-60s. BED LOW AND LOCKED.
--- NOTE | 2020-11-27 10:00 | NUR ---
UPDATE PT TAKEN OFF BIPAP DUE TO AWAKENING, AND INCREASING AGITATION - AROUND 0800. PT ABLE TO MAINTAIN SPO2 IN 90s% WHEN AWAKE ON RA -- 2L NC. PT MORE CALM OFF BIPAP. 0945 - PT BACK ON BIPAP DUE TO DECREASED RR, SPO2 88%, PT LETHARGIC/SLEEPY. SPO2 BACK UP TO 94%. SEEING MORE OF THE SAME IN HER BEHAVIOR TODAY COMPARED TO YESTERDAY. PERIODS OF RESTLESSNESS, AGITATION, AND CONFUSED MUMBLING/RAMBLINGS, SOMETIMES ARTICULATING WORDS OKAY, BUT MAINLY SLURRING HER WORDS, SPEAKING VERY FAST. AND OTHER PERIODS OF LETHARGY, SLEEPINESS, DECREASED RR, AND SEDATION (FROM ONLY PRECEDEX TODAY 1.4 MCG/KG/HR).
--- NOTE | 2020-11-27 12:20 | NUR ---
UPDATE/NEURO/BEHAVIOR/ALICIA MORE OF THE SAME BEHAVIOR; ALTERNATING FROM LETHARGY/SEDATION/SLEEPING (OFTEN REQUIRING THE BIPAP) TO RESTLESSNESS, CONFUSION, SLURRING HER WORDS AND SPEAKING VERY FAST - MOSTLY NONSENSICAL (DOING FINE ON RA -> 2LNC). ATIVAN HAD BEEN DCd THIS MORNING D/T ONLY HELPING IN THE SHORT TERM AND MAKING HER MORE INCOHERENT WHEN SHE WOULD EVENTUALLY WAKE UP. PT HAS BEEN MORE RESTLESS, AND LESS AGITATED TODAY, LOTS OF CONFUSION BUT HAS NOT BEEN TRYING TO GET OUT OF BED OR PULL AT ANYTHING. AVOIDING PRN SEDATION, AND AFTER DISCUSSING PLAN OF CARE WITH DR. VARGAS HE WANTED TO DECREASE PRECEDEX TO SEE WHAT HER NEURO STATUS IS OFF SEDATION OR AT LEAST ON EMERGENCY SERVICES DISPATCHER SEDATION. WILL CONTINUE TO MONITOR.
--- NOTE | 2020-11-27 12:59 | NUR ---
UPDATE/ALICIA/HYPERTENSIVE PT HAS BEEN HAVING ELEVATED BP, SBP 160-205. DR. WALKER AND DR. VARGAS AWARE; ALICIA INSTRUCTED ME THIS MORNING TO WAIT FOR HIS ASSESSMENT PRIOR TO DOING ANY MEDICATION. STEROIDS HAD BEEN STARTED YESTERDAY, AND THE PT HAS BEEN OFF HER HOME BLOOD PRESSURE MEDS FOR A WHILE NOW (HCTZ, AND LOSARTAN) - TWO FACTORS THAT MAY BE IMPOLICATED IN THE HIGHER BPs. BECAUSE THE ELEVATION IN HER BP DOES NOT SEEM TO BE ASSOCIATED WITH HER AGITATION LEVEL COMPLETELY. SHE IS UNABLE TO SWALLOW ANYTHING AND WOULD NOT TOLERATE AN NG TUBE. SO DR. WALKER ORDERED PRN IV HYDRALAZINE, AND ALICIA AGREED - SO AT 1230 10 MG IV GIVEN. BP AT 1300: 159/98, 123. WILL CONTINUE TO MONITOR.
--- NOTE | 2020-11-27 15:04 | NUR ---
UPDATE/NEURO PRECEDEX DOWN TO 0.6 MCG/KG/HR, PT WAKING UP MORE, AND STARTING TO BECOME SLIGHTLY MORE COHERENT. SHE IS SLEEPY, BUT RESPONDS TO VERBAL STIMULI, AND IS SOMETIMES ALERT OPENING EYES SPONTANEOUSLY. SHE IS ORIENTED TO YEAR, PRESIDENT, SELF, FAMILY, AND IS FOLLOWING COMMANDS. SHE CONTINUES TO MAKE CONFUSING STATEMENTS AT TIMES, BUT IS ARTICULATING HER WORDS/SENTENCES MUCH BETTER. AFTER TELLING HER SHE's IN THE HOSPITAL SHE WAS ABLE TO RETAIN THE INFORMATION AND TELL ME SHE WAS IN THE HOSPITAL AFTER ASKING A SECOND TIME. SHE STRUGGLES TO OPEN AND KEEP OPEN HER LEFT EYE, AND THE PUPIL IS SLIGHTLY TURNED INWARD. PT IS HAVING DIFFICULTY SEEING THINGS ON THE LEFT SIDE OF HER, BUT NOT MUCH ON THE RIGHT. PUPILS ARE ROUND, EQUAL IN SIZE, AND REACTIVE TO LIGHT. SHE DOES NOT FOLLOW MY FINGER ( I MOVE IT LEFT TO RIGHT, UP AND DOWN), SHE ONLY TRACKED WHEN I MOVED MY FINGER TO HER RIGHT, BUT WAS INCONSISTENT. EQUAL MEDICAL INSURANCE CLAIMS PROCESSOR, EQUAL STRENGTH IN LEGS, DEL RIO, FOLLOWING COMMANDS. WILL CONTINUE TO MONITOR. PT REDIRECTABLE WHEN SHE STARTS TO GET ANXIOUS/AGITATED, AT THE MOMENT.
--- NOTE | 2020-11-27 16:34 | NUR ---
UPDATE AFTER A FEW HOURS OF CALM, COOPERATIVE, AND MORE COHERENT BEHAVIOR - PT STARTED TO BECOME MORE AND MORE AGITATED. AFTER AMPING UP, SHE EVENTUALLY STARTED TO THRASH ABOUT, AND MEANWHILE KEPT SAYING THINGS LIKE, "HELP ME, HELP ME!", "GET ME OUT OF HERE", "I UNDERSTAND, BUT THEY ARE DOING IT ON PURPOSE", "YEAH I KNOW, BUT I NEED TO GET OUT OF HERE"; ETC... THIS IS A CHANGE FROM EARLIER THIS AFTERNOON, AND SHE IS NO LONGER REDIRECTABLE. FIXATED ON THIS RN ASKING HER "WHERE ARE YOU? WHAT CITY ARE YOU IN?" SHE COULD ONLY REPLY (DEFENSIVELY) "WHY ARE YOU ASKING ME THAT? YOU KNOW WHERE I AM?", WAS NOT COMPREHENDING ANYTHING AFTER THAT, AND WOULD JUST REPEAT THAT OVER AND OVER AGAIN. AFTER SWINGING HER ARMS AND THRASHING ABOUT, 5 MG ZYPREXA IM WAS GIVEN, AND PRECEDEX WAS TURNED BACK UP OVER THE COURSE OF 30 MINUTES, CURRENTLY AT 1.2 MCG/KG/HR, WITHIN 10 MINUTES THE PT STARTED TO BECOME MORE CALM, A LITTLE COOPERATIVE, AND SLEEPY. CURRENTLY SHE IS TALKING TO HERSELF, POSSIBLY HALLUCINATING, SAYING "HI GRANDPA" AND "I MISS YOU GRANDPA". SHE HAS NO LONGER BEEN THRASHING AROUND, OR SWINGING HER ARMS. SHE APPEARS COMFORTABLE FOR TIME BEING. WILL CONTINUE TO MONITOR. LEFT OUT OF RESTRAINTS SHE DOES NOT PULL AT ANYTHING, AND DUE TO HER BEING AWAKE SHE IS NOT REQUIRED TO WEAR THE BIPAP AT THE CURRENT MOMENT. MAY NEED TO RECONSIDER RESTRAINTS WHEN SHE NEEDS TO WEAR THE BIPAP.
--- NOTE | 2020-11-27 17:32 | NUR ---
SHIFT SUMMARY SEE PREVIOUS NOTES FOR UPDATES T/O SHIFT. NO MAJOR CHANGES SINCE LAST NOTE, PT CONTINUES TO BE CALM, BUT IS HALLUCINATING - TALKING OUT LOUD TO AN EMPTY ROOM, AT TIMES MENTIONING HER GRANDPA, AND THEN HER DAD. WHEN I WALKED IN SHE WOULD ASK ME IF SHE COULD WATCH ME PLAY PIANO, AND THAT SHE NEEDED HELP GETTING OUT OF HERE, TO GO WATCH ME. CURRENTLY ON 2L NC, SPO2 94%, IN AND OUT OF SLEEP, OVERALL CALM AND COOPERATIVE FOR THE MOST PART. PRECEDEX AT 1.2 MCG/KG/HR. D5W INFUSING 75 ML/HR, AND CLINIMIX WITH LIPIDS INFUSING AT 75 ML/HR. MAGNESIUM SULFATE IS BEING REPLACED. HYPERTENSIVE T/O DAY. AFTER HIS EVALUATION, DR. VARGAS, WAS OKAY WITH USING HYDRALAZINE FOR TIME BEING TO HELP CONTROL SBP < 170. BP HAD TEMPORARILY IMPROVED, BUT REMAINS ELEVATED. ALICIA CONSIDERED AN NG TUBE TO GIVE HER LOSARTAN AND HCTZ, BUT IN ATTEMPT TO MINIMIZING AGITATION/DISCOMFORT - HE DECIDED AGAINST THAT IDEA. WILL CONTINUE TO MONITOR. BED LOW AND LOCKED.
--- NOTE | 2020-11-28 03:02 | NUR ---
ASSUMED CARE AT 1900 PT IS ALERT/ORIENTED AND FOLLOWS DIRECTIONS BUT HAS EPISODES OF CONFUSION WHERE SHE IS TALKING TO INDIVIDUALS THAT ARE NOT HERE AND BECOMES FIXATED ON A PHRASE OR WORD AND REPEATS THEM FREQUENTLY; ALSO STATING THAT SHE IS SEEING YELLOW LIGHTS THAT ARE NOT PRESENT. PT IS LABILE AND CAN MISINTERPRET CONVERSATIONS OUSIDE OF ROOM, EXAMPLE; PT HEARD THE WORD "SHOT" AND STARTED TALKING IF WE WERE "IN A BAR TAKING SHOTS". PT IS ALSO REDIRECTABLE WHEN IT COMES TO WANTING TO GET OUT OF BED AND LEAVE THE HOSPITAL. PRECEDEX INFUSING AT 1.4MCG/KG/HR. SPO2 >90% ON RA. AFIBRILE. HR 70-80'S. SBP 170-190'S. PRN'S AVAILABLE AND GIVEN FOR HTN, SEE EMAR. JUAREZ PATENT AND DRAINING TO GRAVITY. CLINIMIX AND D5 INFUSING VIA PICC TO OTTO. SEE SHIFT ASSESSMENT FOR FULL ASSESSMENT.
--- NOTE | 2020-11-28 03:17 | NUR ---
UPDATE 2100 PT INCREASE IN DETERMINATION TO GET OUT OF BED AND LEAVE. PT HAD BOTH LEGS OVER SIDE RAIL. PT REDIRECTABLE AFTER A FEW MIN, PRECEDEX INCREASED TO 1.4MCG/KG/HR. PT INCREASE IN AUDITORY HALLUCINATION, EXAMPLES; PT YELLING AT HER DAD TO STOP "DOING NASTY THINGS" AND ALSO ASKED RN TO CALL [employer], WHEN ASKED FOR THE NUMBER, PT TURNED AWAY FROM RN AND ASKED [employer] WHAT HIS NUMBER WAS, THERE WAS NO ONE ELSE IN THE ROOM.
[2020-11-28 04:22] LABS: BASOPHILS ABSOLUTE AUTO 0.03 K/mm3 (0.00-0.23); BASOPHILS PERCENT AUTO 0 % (0-2); Hematocrit 33.1 % (33.0-51.0); Hemoglobin 10.5 g/dL (11.5-16.0); LYMPHOCYTES ABSOLUTE AUTO 1.04 K/mm3 (0.84-5.20); LYMPHOCYTES PERCENT AUTO 11 % (21-46); MONOCYTES ABSOLUTE AUTO 0.78 K/mm3 (0.16-1.47); MONOCYTES PERCENT AUTO 8 % (4-13); Mean Corpuscular HGB 30.7 pg (26.0-34.0); Mean Corpuscular HGB Conc 31.7 g/dL (31.5-36.5); Mean Corpuscular Volume 97 fL (80-100); Mean Platelet Volume 10.2 fL (9.1-12.4); NRBC ABSOLUTE 0.07 K/mm3 (0.00-0.02); NRBC Auto 0.7 /100 WBC (0.0-0.2); Platelet Count 259 K/mm3 (150-400); RDW Coefficient Variation 16.2 % (11.7-14.2); RDW Standard Deviation 57.6 fL (35.1-46.3); Red Blood Cell Count 3.42 M/mm3 (3.80-5.20); White Blood Cell Count 9.77 K/mm3 (4.00-11.30)
[2020-11-28 04:23] LABS: EOSINOPHILS PERCENT AUTO 0 % (0-6); IMMATURE GRAN ABSOLUTE AUTO 1.15 K/mm3 (0.00-0.10); IMMATURE GRAN PERCENT AUTO 12 % (0-1); NEUTROPHILS ABSOLUTE AUTO 6.77 K/mm3 (1.96-9.15); NEUTROPHILS PERCENT AUTO 69 % (41-73)
[2020-11-28 04:39] LABS: Magnesium, Blood 1.9 mg/dL (1.6-2.4)
[2020-11-28 04:46] LABS: Albumin, Blood 2.4 g/dL (3.4-5.0); Anion Gap 8 mmol/L (6-16); Blood Urea Nitrogen 40 mg/dL (8-24); Bun/Creatinine Ratio 40.3 (12.0-20.0); CO2, Blood 29 mmol/L (21-32); Chloride, Blood 105 mmol/L (98-108); Creatinine, Blood 0.99 mg/dL (0.40-1.00); Glomerular Filtration Rate >60 (60-); Glucose, Blood 288 mg/dL (70-99); Phosphorus, Blood 3.7 mg/dL (2.5-4.9); Sodium, Blood 142 mmol/L (136-145); Triglycerides 383 mg/dL (30-160)
[2020-11-28 04:47] LABS: Calcium, Blood 8.9 mg/dL (8.5-10.1)
[2020-11-28 04:57] LABS: BAND PERCENT MAN 6 % (0-8); BASOPHILS ABSOLUTE MAN 0.09 K/mm3 (0.00-0.23); BASOPHILS PERCENT MAN 1 % (0-2); EOSINOPHILS PERCENT MAN 0 % (0-6); LYMPHOCYTES ABSOLUTE MAN 0.78 K/mm3 (0.84-5.20); LYMPHOCYTES PERCENT MAN 8 % (21-46); MONOCYTES ABSOLUTE MAN 0.78 K/mm3 (0.16-1.47); MONOCYTES PERCENT MAN 8 % (4-13); SEG NEUTROPHILS PERCENT MAN 77 % (41-73); TOTAL CELLS COUNTED 100
--- NOTE | 2020-11-28 06:14 | NUR ---
END OF SHIFT SUMMARY PT CONT TO BE ALERT/ORIENTED BUT HALLUCINATING AND IS REDIRECTABLE, SEE PREVIOUS NOTES FOR EXAMPLES OF BEHAVIORS. SPO2 >90 ON RA. HR 70-80'S. SBP 140-200; PRN HYDRALAZINE AND PRN LABETALOL BOTH GIVEN TWICE T/O THE NIGHT FOR HYPERTENSION. JUAREZ PATENT AND DRAINING TO GRAVITY. PRECEDEX INFUSING AT 1.4MCG/KG/HR. CLINIMIX INFUSING AT 75ML/HR, D5 INFUSING AT 75ML/HR. WILL REPORT TO AM RN WHEN AVAILABLE.
--- NOTE | 2020-11-28 07:15 | NUR ---
PT RECEIVED FROM YARON OROZCO. PT DROWSY, MOANING, REPEATS OUR NAMES. LUNGS CLEAR, BELLY SOFT, PULSES GOOD, MENTATION OFF. CAN'T ANSWER QUESTIONS, ASKED ABOUT HER NAILS, ABOUT HER WHEREABOUTS, UNABLE TO PROVIDE ANSWER. PRECEDEX AT 1.4MCG/KG/HR, IV AT 75ML, CLINIMIX @75 ML HR. JUAREZ DRAINING TO GRAVITY WITH CLEAR YELLOW RETURN.
--- NOTE | 2020-11-28 08:20 | NUR ---
HELPING PATIENT TO REPOSITION, AUDIBLE WHEEZING NOTED, PT ASKED ABOUT A BREATHING TREATMENT, SHE SAYS SHE HASN'T HAD THAT BEFORE, DOESN'T LOOK LIKE SHE IS IN THE HOSPITAL, SAID IT DOESN'T MAKE SENSE.
--- NOTE | 2020-11-28 09:30 | NUR ---
MEDICATED WITH HYDRALAZINE FOR ELEVATED BLOOD PRESSURE. WITH GOOD RESPONSE.
--- NOTE | 2020-11-28 09:45 | NUR ---
IN TO SEE PATIENT, PATIENT ANSWERS QUESTIONS R/T AGE/BIRTHDAY/COLOR DOESN'T FEEL LIKE SHE IS IN THE HOSPITAL, DOESN'T "UNDERSTAND". PICC LINE CONTINUES INFUSING HER PRECEDEX (CUT IN HALF TO 0.7), CPN AND LIPIDS. SHE IS TOLERATING ICE CHIPS AND SAID TO ADVANCE TOLERATED. PT GIVEN APPLE JUICE.
--- NOTE | 2020-11-28 10:20 | NUR ---
PT CALLED ME IN THE ROOM, ASKED IF IT WAS OK TO SLEEP, SHE FEELS REALLY SLEEPY I TOLD HER IT WAS OK TO SLEEP. SHE WAS TOLERATING THE JUICE WELL, SHE WAS JUST MISSING HER TRAY WHEN SHE WAS PUTTING IT BACK. HER DEXTERITY IS OFF SOME, FINDING HER MOUTH, IE. SHE ASKED FOR A BLANKET, ASKED FOR HER JUICE. SEEMS TO BE "WAKING UP" A LITTLE.
--- NOTE | 2020-11-28 12:15 | NUR ---
JOSE POINTED UP AT THE CEILING AND SAID, "I THINK THAT IS FULL". I ASKED HER WHAT SHE THOUGHT WAS FULL? SHE SAID MY CATHETER? DIDN'T YOU SAY IT WAS UP THERE? I SHOWED HER THE CATHETER AND WE REPOSITIONED THE TUBING, TOLD HER IT WAS OK TO VOID.
--- NOTE | 2020-11-28 16:05 | NUR ---
JOSE HAS HAD A HUGE TURNAROUND SINCE THIS AM, SHE IS OFF THE PRECEDEX (SINCE 1430), WENT TO THE SHOWER ROOM AFTER GETTING UP TO THE BSC. SHE IS CONVERSING WELL WITH HER FRIEND, THERE ARE SOME MOMENTS THAT SHE IS UNSURE OF, BUT PROBABLY 90% ORIENTED. SHE IS TOLERATING HER DIET, DRINKING LOTS OF FLUIDS, AND SHE IS HAVING A GOOD RETURN IN HER JUAREZ. HER FRIEND IS HERE WITH HER. SHE IS USING HER CALL LIGHT AND HER BLOOD PRESSURE IS STABLE. ORAL MEDICATIONS ON BOARD. SHE IS GOING TO GET A ROOM IN PCU, SHE HAS BEEN MADE AWARE OF HER GOOD PROGRESS AND THE CHANGES THAT ARE HAPPENING.
--- NOTE | 2020-11-28 16:52 | NUR ---
ASSUMED CARE, REPORT FROM YARON VALDEZ IN ICU. AWAKE AND VISITING WITH A FRIEND AT THIS TIME.
[2020-11-29 06:06] LABS: Anion Gap 8 mmol/L (6-16); Blood Urea Nitrogen 31 mg/dL (8-24); Bun/Creatinine Ratio 35.4 (12.0-20.0); CO2, Blood 28 mmol/L (21-32); Calcium, Blood 8.9 mg/dL (8.5-10.1); Chloride, Blood 104 mmol/L (98-108); Creatinine, Blood 0.88 mg/dL (0.40-1.00); Glomerular Filtration Rate >60 (60-); Glucose, Blood 178 mg/dL (70-99); Magnesium, Blood 1.4 mg/dL (1.6-2.4); Phosphorus, Blood 3.9 mg/dL (2.5-4.9); Potassium, Blood 3.4 mmol/L (3.5-5.5); Sodium, Blood 140 mmol/L (136-145)
--- NOTE | 2020-11-29 06:43 | NUR ---
SHIFT SUMMARY ASSUMED CARE OF PT AT 1900. PT IS A/OX4 WITH TIMES OF CONFUSION. FOR EXAMPLE, PT WAS ORIENTED AT BEGINNING OF THE SHIFT BUT THEN AWOKE IN THE MIDDLE OF THE NIGHT THINKING THAT SHE WAS [place] A DIFFERENT [place] AND HOS[place]. HEART SOUNDS REGULAR, TELE SHOWS SINUS TACH @ 101. LUNG SOUNDS DIMINISHED. PT HAD A COUGH T/O THE NIGHT, NOTIFED HOSPITALIST WHO ORDERED TESSLAN PEARLS. PT HAS HAD LOOSE DARK BROWN STOOL SINCE EARLY THIS AM. PT CATHETER IS DRAINING CLEAR PRECIOUS URINE. PT C/O PAIN AT CATHETER SITE, IT WAS ADJUSTED MULTIPLE TIMES WITH LITLE RESULTS. PT IS 1P SBA TO COMMODE. PT ABLE TO SHUT OFF BED ALARM AND TAB ALARM AND WILL TRANSFER WITHOUT HELP. CALL LIGHT IN REACH, BED IN LOWEST POSTION.
--- NOTE | 2020-11-29 18:06 | NUR ---
PT SUMMARY: PT ALERT AND ORIENTED AT BASELINE, STILL GETS CONFUSED AT TIMES TO DATE AND PLACE. PT HAS BEEN AMBULATING INDEPENDENTLY IN THE ROOM, PT EVAL DONE TODAY PT CAN BE INDEPENDENT IN THE ROOM PER PT. PT DENIES ANY CHEST PAIN AND PRESSURE FOR THE SHIFT VITALS STABLE BP SYSTOLIC 150'S-170'S, SATS ABOVE 95% ON RA, AFEBRILE. PT FOR POSS DC IN AM. PT RECEIVED A SHOWER TODAY. ALSO C/O LOOSE BM X3 FOR THE SHIFT REQUESTED IMODIUM AND WAS EFFECTIVE, STOOL BROWN YELLOW IN COLOR. PT COOPERATIVE WITH CARES, NOW RESTING IN BED CALL LIGHTS IN REACH WILL MONITOR UNTIL END OF SHIFT
[2020-11-30 05:07] LABS: Anion Gap 9 mmol/L (6-16); Blood Urea Nitrogen 20 mg/dL (8-24); Bun/Creatinine Ratio 27.3 (12.0-20.0); CO2, Blood 28 mmol/L (21-32); Calcium, Blood 8.9 mg/dL (8.5-10.1); Chloride, Blood 103 mmol/L (98-108); Creatinine, Blood 0.73 mg/dL (0.40-1.00); Glomerular Filtration Rate >60 (60-); Glucose, Blood 196 mg/dL (70-99); Magnesium, Blood 1.4 mg/dL (1.6-2.4); Potassium, Blood 3.4 mmol/L (3.5-5.5); Sodium, Blood 140 mmol/L (136-145)
--- NOTE | 2020-11-30 06:32 | NUR ---
SHIFT SUMMARY PT IS A 45 Y/O FEMALE, ADMITTED WITH TOXIC METABOLIC ENCEPHALOPATHY. SHE IS A&O X 4, INDEPENDENT IN THE ROOM. PT REPORTED ABD CRAMPING AND DIARRHEA DURING THE NIGHT, BUT REFUSED IMMODIUM. NO C/O NAUSEA OR SOB. BP WAS ELEVATED DURING THE NIGHT, IN THE 170-180S SYSTOLIC, BUT WAS WELL CONTROLLED WITH SCHEDULED LABETOLOL AND PRN HYDRALAZINE. ALL OTHER VITALS STABLE. PT SLEPT OFF AND ON DURING THE NIGHT. NO ACUTE CHANGES IN PT CONDITION NOTED. WILL CONTINUE TO MONITOR AND TREAT PER EMAR UNTIL HAND OFF TO DAY SHIFT RN.
[2020-11-30] MEDS ORDERED: Acetaminophen325 M1 PO (10:10)
[2020-11-30] MEDS ORDERED: AMLO5 PO (10:11)
[2020-11-30] MEDS ORDERED: BENZ100A PO (10:11)
[2020-11-30] MEDS ORDERED: FURO20 PO (10:12)
[2020-11-30] MEDS ORDERED: LABE200 PO (10:13)
[2020-11-30] MEDS ORDERED: LOPE2C PO (10:14)
--- NOTE | 2020-11-30 11:42 | NUR ---
PT DISCHARGED TO HOME TODAY WITH DISCHARGE ORDERS, PRESCRIPTION SENT TO [facility] PER PT REQUESTS. PICC LINE PULLED ON OTTO AND IS WNL, TIP INTACT. NEW MEDICATION AND INSTRUCTIONS DISCLOSED WITH THE PT, PT TO FOLLOW UP WITH PCP IN [address] MCKEON ON 12/07/20, PT VERBALIZED UNDERSTANDING. PT DENIES ANY PAIN, NO OTHER ISSUES ENCOUNTERED, VSS AFEBRILE. ALL BELONGINGS SENT WITH THE PT, AMBULATORY AND INDEPENDENT, HER FRIEND CAME IN TO PICK HER UP. PT OUT OF FACILITY BY 11:40A.
== END 2020-11-30 11:37 | disposition home or self-care (01) | DRG 871 ==
LOC: ER 13:15 → ERHOLD 16:29 → ICUW 16:29 → PCU 11-28 18:07 → ENPENDDIS 11-30 09:31 → PCU 11-30 11:37
PROVIDERS: Internal Medicine; Internal Medicine Critical Care Medicine; Internal Medicine Nephrology; Physician Assistant; Student in an Organized Health Care Education/Training Program; ADMIT Internal Medicine
PROC: 009U3ZX Drainage of Spinal Canal, Percutaneous Approach, Diagnostic (ICD-10-PCS; principal; 2020-11-23)
PROC: 5A09357 Assistance with Respiratory Ventilation, Less than 24 Consecutive Hours, Continuous Positive Airway Pressure (ICD-10-PCS; 2020-11-23)
PROC: 0BH18EZ Insertion of Endotracheal Airway into Trachea, Via Natural or Artificial Opening Endoscopic (ICD-10-PCS; 2020-11-23)
PROC: 5A1935Z Respiratory Ventilation, Less than 24 Consecutive Hours (ICD-10-PCS; 2020-11-24)
DX: A41.9 Sepsis, unspecified organism (principal); G92 Toxic encephalopathy; J96.01 Acute respiratory failure with hypoxia; M62.82 Rhabdomyolysis; E87.1 Hypo-osmolality and hyponatremia; E87.2 Acidosis; N17.9 Acute kidney failure, unspecified; E87.0 Hyperosmolality and hypernatremia; Z68.41 Body mass index [BMI] 40.0-44.9, adult; N12 Tubulo-interstitial nephritis, not specified as acute or chronic; R65.20 Severe sepsis without septic shock; E66.01 Morbid (severe) obesity due to excess calories; R74.01 Elevation of levels of liver transaminase levels; N20.0 Calculus of kidney; Z21 Asymptomatic human immunodeficiency virus [HIV] infection status; E78.00 Pure hypercholesterolemia, unspecified; K21.9 Gastro-esophageal reflux disease without esophagitis; E83.39 Other disorders of phosphorus metabolism; E88.09 Other disorders of plasma-protein metabolism, not elsewhere classified; I10 Essential (primary) hypertension; E83.42 Hypomagnesemia; Z78.1 Physical restraint status
CPT/HCPCS: 31720; 36415; 36569; 36600; 51798; 70450; 71045; 74176; 80048; 80053; 80069; 80202; 81001; 82140; 82550; 82553; 82803; 82945; 82947; 83605; 83735; 83930; 84100; 84157; 84478; 84484; 84550; 85025; 85610; 85730; 86361; 87040; 87070; 87086; 87102; 87205; 87483; 87536; 89051; 93005; 93010; 93306; 94002; 94003; 94640; 94660; 94760; 96365-59; 96366-59; 96367-59; 97110; 97162; 99285-25; A9270; C1751; J0360; J0696; J0881; J1644; J1650; J2060; J2250; J2704; J2920; J3010; J3370; J3475; J3480; J7030; J7040; J7050; J7060; J7070; P9612